=== PATIENT | male | born 1960 | race Caucasian/White ===

== ENCOUNTER 2019-12-05 06:05 | Emergency (ER) | payer MEDICAID ==
[~2019-12-05] VITALS: Ht 162.6 cm; Wt 82.0 kg
[2019-12-05 06:47] VITALS: BP 134/84
== END 2019-12-05 06:50 | disposition home or self-care (01) ==
LOC: ER 06:05
DX: J02.9 Acute pharyngitis, unspecified (principal); H92.03 Otalgia, bilateral
CPT/HCPCS: 99282